=== PATIENT | male | born 1995 | race Caucasian/White ===

== ENCOUNTER 2017-05-17 01:23 | Emergency (ER) | payer OTHER ==
[2017-05-17 01:33] VITALS: O2SAT 100
--- NOTE | 2017-05-17 01:59 | C.PDOC ---
History Of Present Illness A 21 y/o M c/o sore throat and nasal congestion for the past 3 days. Pt states "I saw white things on my tonsils, so i want to see if I have strep". Denies cough, earache, fever, chills, or any other complaints. Time Seen by Provider: 05/17/17 01:35 Chief Complaint (Nursing): ENT Problem History Per: Patient History/Exam Limitations: None Onset/Duration Of Symptoms: Days Current Symptoms Are (Timing): Still Present Severity: Mild Past Medical History Reviewed: Historical Data, Nursing Documentation, Vital Signs Vital Signs: Last Vital Signs Temp 98.9 F 05/17/17 02:17 Pulse 102 H 05/17/17 02:17 Resp 19 05/17/17 02:17 BP 104/71 05/17/17 02:17 Pulse Ox 100 05/17/17 05:04 - [facility] Procedures APPLICATION OF SPLINT (08/30/14) TETANUS TOXOID ADMINIST (08/30/14) Family History: States: Unknown Family Hx - Social History Hx Tobacco Use: No Hx Alcohol Use: Yes Hx Substance Use: No - Immunization History Hx Tetanus Toxoid Vaccination: No Hx Influenza Vaccination: No Hx Pneumococcal Vaccination: No Review Of Systems Except As Marked, All Systems Reviewed And Found Negative. Constitutional: Negative for: Fever, Chills ENT: Positive for: Nose Congestion, Throat Pain. Negative for: Ear Pain Respiratory: Negative for: Cough Physical Exam - Physical Exam Appears: Non-toxic, No Acute Distress Skin: Warm, Dry Head: Atraumatic, Normacephalic Nose: Discharge (White nasal discharge) Oral Mucosa: Moist Throat: Erythema (Mild), Other (Tonsils normal, no enlargement) Neck: Supple Neurological/Psych: Oriented x3 (Awake and alert) ED Course And Treatment O2 Sat by Pulse Oximetry: 100 (RA) Pulse Ox Interpretation: Normal Progress Note: Impression: A 21 y/o M c/o sore throat, nasal congestion for the past 3 days. Plans: Motrin, Rapid strep, Reassess. Rapid strep was negative. Pt is in no acute distress at this time and is resting comfortably. Pt was instructed to follow up with PMD within 1-2 days for further evaluation. Disposition Counseled Patient/Family Regarding: Diagnosis, Need For Followup, Rx Given - Disposition Referrals: [facility] [Outside] Disposition: HOME/ ROUTINE Disposition Time: 01:57 Condition: STABLE Additional Instructions: Increase PO fluids Take meds as directed Follow up with PMD Return to ER if worse Prescriptions: Cetirizine HCl [Zyrtec] 10 mg PO DAILY #20 capsule Ibuprofen [Motrin] 600 mg PO Q6H #20 tab Instructions: Ibuprofen (By mouth), Cetirizine (By mouth), Upper Respiratory Infection (ED) - Clinical Impression Clinical Impression: Upper respiratory infection - Scribe Statement The provider has reviewed the documentation as recorded by the Scribbrad arroyo All medical record entries made by the Feltonibbrad were at my direction and personally dictated by me. I have reviewed the chart and agree that the record accurately reflects my personal performance of the history, physical exam, medical decision making, and the department course for this patient. I have also personally directed, reviewed, and agree with the discharge instructions and disposition.
[2017-05-17 02:18] VITALS: BP 104/71; PULSE 102; RESP 19; TEMP 98.9
== END 2017-05-17 02:26 | disposition home or self-care (01) ==
LOC: C.ER 01:23
DX: J06.9 Acute upper respiratory infection, unspecified (principal); Z72.0 Tobacco use

== ENCOUNTER 2017-05-18 10:54 | Emergency (ER) | payer MEDICAID, OTHER ==
[2017-05-18 11:13] VITALS: BMI 22.3
[2017-05-18 11:16] VITALS: BP 136/78; RESP 18; TEMP 98.3; O2SAT 98
--- NOTE | 2017-05-18 11:44 | C.PDOC ---
History Of Present Illness 21 yo male w/o significant PMHx come in for evaluation of generalized bodyaches , sore throat, " severe nasal congestion, unable to sleep last night", dry cough for past 4 days. Otherwise, pt denies high fever, chills, headache, dizziness, vertigo, neck pain, drooling, dyspnea, CP, SOB, wheezing, abd. pain, N/V/D, back pain, UTI sx, Pt denies recent travel or sick contact. Ambulate to ED for evaluation, not in any apparent distress. Time Seen by Provider: 05/18/17 11:12 Chief Complaint (Nursing): Cough, Cold, Congestion History Per: Patient History/Exam Limitations: no limitations Onset/Duration Of Symptoms: Days (4) Past Medical History Reviewed: Historical Data, Nursing Documentation, Vital Signs Vital Signs: Last Vital Signs Temp 98.3 F 05/18/17 11:12 Pulse 103 H 05/18/17 11:12 Resp 18 05/18/17 11:12 BP 136/78 05/18/17 11:12 Pulse Ox 98 05/18/17 12:05 - [facility] Procedures APPLICATION OF SPLINT (08/30/14) TETANUS TOXOID ADMINIST (08/30/14) Family History: States: No Known Family Hx - Social History Hx Tobacco Use: No Hx Alcohol Use: Yes Hx Substance Use: No - Immunization History Hx Tetanus Toxoid Vaccination: No Hx Influenza Vaccination: No Hx Pneumococcal Vaccination: No Review Of Systems Except As Marked, All Systems Reviewed And Found Negative. Constitutional: Positive for: Other ((+) Body aches ). Negative for: Fever, Chills ENT: Positive for: Nose Congestion, Throat Pain (Sore throat ) Cardiovascular: Negative for: Chest Pain Respiratory: Positive for: Cough (Dry). Negative for: Shortness of Breath, Wheezing Gastrointestinal: Negative for: Nausea, Vomiting, Abdominal Pain, Diarrhea Genitourinary: Negative for: Dysuria Musculoskeletal: Negative for: Neck Pain, Back Pain Neurological: Negative for: Headache, Dizziness Physical Exam - Physical Exam Appears: Well, Non-toxic, No Acute Distress Skin: Normal Color, Warm, Dry, No Rash Eye(s): bilateral: PERRL Ear(s): Bilateral: Normal Nose: No Flaring, Discharge (B/L nasal congestion with scant clear rhinorrhea) Oral Mucosa: Moist, No Drooling Tongue: Normal Appearing Lips: Normal Appearing Throat: Erythema (mod B/L with edema. Mild tonsillar enlargement B/L. uvula midline, no edema.) Neck: Supple Cardiovascular: Rhythm Regular Respiratory: No Decreased Breath Sounds, No Accessory Muscle Use, No Stridor, No Wheezing Gastrointestinal/Abdominal: Soft, No Tenderness, No Distention, No Guarding Extremity: No Pedal Edema Neurological/Psych: Oriented x3, Normal Speech ED Course And Treatment O2 Sat by Pulse Oximetry: 98 (RA ) Pulse Ox Interpretation: Normal Progress Note: On re-eval, pt is afebrile, hemodynamicaly stable. NO-toxic. Tolerate Po wlel in ED. Pulseox 98% RA. Neck: Supple, (-) meningeal sign. ENT : exam c/w acute pharyngitis r/o tonsillitis. Lungs: CTA B/L, BS equal B/L. Abd: soft. back: (-) CVA tenderness. INfluenza (-). Pt advised. ref. to F/u with PMD in 2-3 days for re-evaluation. return to ED if any worsening or new changes. Medical Decision Making Medical Decision Making: PLAN: * Influenza * Benadryl PO * Tylenol PO * Prednisone PO Disposition Counseled Patient/Family Regarding: Diagnosis, Need For Followup, Rx Given - Disposition Referrals: Clinic,Med Surg [Primary Care Provider] - Disposition: HOME/ ROUTINE Disposition Time: 11:48 Condition: STABLE Additional Instructions: Encourage fluids take medication as prescribed Follow up with PMD and ENT In 2-3 days for re-evaluation. Return to ED if any worsening or new changes. Prescriptions: Amoxicillin/Clavulanate [Augmentin 875 MG-125 MG] 1 tab PO BID #14 tab Prednisone [Deltasone] 20 mg PO DAILY #3 tablet Instructions: Pharyngitis (ED) Print Language: UPPER SORBIAN - Clinical Impression Clinical Impression: Pharyngitis - PA / ACCOUNTING PROFESSOR / Resident Statement MD/DO has reviewed & agrees with the documentation as recorded. - Scribe Statement The provider has reviewed the documentation as recorded by the Scribe Tiffany Beaver All medical record entries made by the Scribe were at my direction and personally dictated by me. I have reviewed the chart and agree that the record accurately reflects my personal performance of the history, physical exam, medical decision making, and the department course for this patient. I have also personally directed, reviewed, and agree with the discharge instructions and disposition.
[2017-05-18] MEDS ORDERED: Amoxicillin-Clav 875-125 mg Tab PO STA (12:26)
[2017-05-18] MEDS ORDERED: Amoxicillin-Clav 875-125 mg Tab PO ONE (12:30)
[2017-05-18 12:37] VITALS: PULSE 86
== END 2017-05-18 12:38 | disposition home or self-care (01) ==
LOC: C.ER 10:54 → SUPCPDRO 10:54 → C.ER 12:38
DX: J02.9 Acute pharyngitis, unspecified (principal)